=== PATIENT | female | born 1955 | race Caucasian/White ===

== ENCOUNTER 2023-06-07 11:01 | Inpatient (IN) ==
--- NOTE | 2023-05-17 13:53 | PAT Medication Instructions ---
Medication Instructions Date of Service May 17, 2023 ASK your surgeon for instructions ibuprofen 400 mg tablet 400 mg PO Q6H PRN Pain DO NOT take the morning of surgery ascorbic acid (vitamin C) 1,000 mg tablet (Vitamin C) 1 g PO QAM cholecalciferol (vitamin D3) 25 mcg (1,000 unit) capsule (Vitamin D3) 25 mcg PO QAM dicyclomine 10 mg capsule 10 mg PO TID ferrous sulfate 325 mg (65 mg iron) tablet (iron) 325 mg PO UD lisinopril 20 mg-hydrochlorothiazide 12.5 mg tablet 1 tab PO QAM magnesium 1 tab PO QAM Take morning of surgery With a small sip of water, OTHERWISE NOTHING TO EAT OR DRINK AFTER MIDNIGHT: fluticasone propionate 50 mcg/actuation nasal spray,suspension 1 spray intranasal DAILY PRN Congestion (if needed) paroxetine HCl 20 mg tablet 20 mg PO QAM Take evening before surgery dicyclomine 10 mg capsule 10 mg PO TID fluticasone propionate 50 mcg/actuation nasal spray,suspension 1 spray intranasal DAILY PRN Congestion (if needed) melatonin 5 mg tablet 10 mg PO HS potassium chloride 10 mEq capsule,extended release 10 - 20 meq PO UD Other Notes If you have any questions please call us at [phone] or [phone] or [phone] or [phone]
--- NOTE | 2023-05-24 11:29 | Anesthesiology Consultation ---
Date of Service May 24, 2023 Assessment & Plan (1) Encounter for pre-operative examination: - Infectious disease screening: Per assessment on 05/24/23: No known infectious disease contacts or current infectious disease symptoms. No noted recent Covid positive test result. - Preop testing: Note written to PCP regarding anemia noted on preop labs > PCP visit/anemia response (05/26/23): "History of iron deficiency anemia. Presently is on iron. Continue to monitor CBC.. Examination is unremarkable. Chest Xray showed no acute findings. EKG sinus rhythm with no acute findings. CBC CMP unremarkable. Iron levels normal. Patient medically cleared for upcoming surgery." Chart Review Chart Review: Acceptable Risk for Surgery and Patient seen in Pre Admission Testing Teaching & Discussion Pre-Anesthesia Teaching/Discussion Notes: Instructed NPO after midnight before surgery,except medications with 15 cc of water. Medication instructions provided according to the PAT guidelines. History Surgery Operation Date: 06/07/23 07:45 Proposed Procedures p L2-L3 Decompression and Fusion, L3-S1 Hardware Removal, Spinal Cord Monitoring - Ankur Celis DO Height/Weight Height: 5 ft 2 in Weight: 90 kg Allergies Allergy/AdvReac Type Severity Reaction Status Date / Time No Known Allergies Allergy Verified 05/17/23 08:56 Medications Home Medications Medication Instructions Recorded Confirmed Last Taken ascorbic acid (vitamin C) 1,000 mg 1 g PO QAM 05/17/23 05/17/23 Unknown tablet (Vitamin C) cholecalciferol (vitamin D3) 25 25 mcg PO QAM 05/17/23 05/17/23 Unknown mcg (1,000 unit) capsule (Vitamin D3) dicyclomine 10 mg capsule 10 mg PO TID 05/17/23 05/17/23 Unknown ferrous sulfate 325 mg (65 mg 325 mg PO UD 05/17/23 05/17/23 Unknown iron) tablet (iron) fluticasone propionate 50 1 spray intranasal DAILY PRN 05/17/23 05/17/23 Unknown mcg/actuation nasal Congestion spray,suspension ibuprofen 400 mg tablet 400 mg PO Q6H PRN Pain 05/17/23 05/17/23 Unknown lisinopril 20 1 tab PO QAM 05/17/23 05/17/23 Unknown mg-hydrochlorothiazide 12.5 mg tablet magnesium 1 tab PO QAM 05/17/23 05/17/23 Unknown melatonin 5 mg tablet 10 mg PO HS 05/17/23 05/17/23 Unknown paroxetine HCl 20 mg tablet 20 mg PO QAM 05/17/23 05/17/23 Unknown potassium chloride 10 mEq 10 - 20 meq PO UD 05/17/23 05/17/23 Unknown capsule,extended release Motrin 2 tab PO Q4 PRN Pain 05/24/23 05/24/23 Unknown Past Medical History Medical History Tremors of nervous system "Head" Follows with [facility] neurology Hx of hyperglycemia PCP monitoring History of blood transfusion Back surgery approximately 2017 Anemia Taking iron supplementation Seasonal allergies Hypertension Anxiety and depression Exercise / Class Metabolic Activity II 4-5 Yardwork/Stairs/Walk up hill (one FS (no CP, no SOB)) Past Surgical History Surgical History Nausea and vomiting after administration of anesthetic agent Hx of arthroscopy of left knee Hx of elbow surgery left elbow tendon surgery Hx of section x4 Hx laparoscopic cholecystectomy Hx of colonoscopy Hx of tooth extraction full dentures History of lumbar fusion Approximately 2017 History of open reduction and internal fixation (ORIF) procedure left ankle- hardware intact Hx of foot surgery right foot fusion (top of foot) Past Anesthesia History No Hx of Anesthesia Complications and No Family Hx of Anesthesia Complications (except son- PONV) History of PONV No Hx of Motion Sickness and History of PONV (Per patient, improvement in the past when scope patch used perioperatively) Social History Smoking Status: Never smoker Do You Dip or Chew Tobacco: No Hx Alcohol Use: Yes alcohol intake frequency: holidays/special occasions only Hx Substance Use: No substance use type: does not use Review of Systems Patient denies chest pain, shortness of breath, dyspnea on exertion, fever, chills, cough, wheezing, palpitations. Physical Exam Vital Signs VITALS BP 108/72 P 62 TEMP 98.6 SP02 97%RA RESP 16 PHYSICAL Full cervical extension range of motion. Full TMJ range of motion. TMD 3 finger breaths Mallampati Score 1 Dentition: upper/lower dentures Lungs: clear throughout to auscultation Cardiac: regular rate and rhythm, no murmurs noted Spine: normal Carotid arteries: negative bruit Extremities: no LE edema Lab Results Anesthesia Preop Results Results Anesthesia Widget: WBC 4.03 K/ul (4.8-10.8) L 05/24/23 Hgb 10.7 g/dl (12.0-16.0) L 05/24/23 Hct 32.0 % (37.0-47.0) L 05/24/23 Plt 206 K/uL (130-400) 05/24/23 Na 138 mmol/L (136-145) 05/24/23 K 3.9 mmol/L (3.5-5.1) 05/24/23 Cl 105 mmol/L (98-107) 05/24/23 CO2 26 mmol/L (21-32) 05/24/23 BUN 15 mg/dl (6-23) 05/24/23 Creat 0.74 mg/dl (0.6-1.2) 05/24/23 Glucose Level 103 mg/dl (70-99(Fasting)) H 05/24/23 PT 10.6 Seconds (9.0-12.0) 05/24/23 PTT 26 Seconds (21-31) 05/24/23 INR 1.0 (0.9-1.1) 05/24/23 Urine Color Dark Yellow 05/24/23 Urine Appearance Cloudy (Clear) A 05/24/23 Urine pH 5.5 (4.5-7.5) 05/24/23 Urine Specific [place] 1.031 (1.000-1.030) H 05/24/23 Urine Protein 1+ (Negative) H 05/24/23 Urine Glucose (UA) Negative (Negative) 05/24/23 Urine Ketones Trace (Negative) H 05/24/23 Urine Blood Negative (Negative) 05/24/23 Urine Nitrite Negative (Negative) 05/24/23 Urine Bilirubin 1+ (Negative) H 05/24/23 Urine Urobilinogen Negative (Negative) 05/24/23 Urine Leukocyte Esterase 1+ (Negative) H 05/24/23 Urine WBC (Auto) >30 /hpf (0-5) H 05/24/23 Urine RBC (Auto) 0-4 /hpf (0-4) 05/24/23 Urine Hyaline Casts (Auto) 1-5 /lpf (0-5) 05/24/23 Urine Epithelial Cells (Auto) >30 /lpf (0-5) H 05/24/23 Urine Bacteria (Auto) 1+ (Negative) H 05/24/23 Blood Type B Positive 05/24/23 Antibody Screen NEGATIVE 05/24/23 Testing Laboratory Results Surgeon's office made aware of abnormal UA* Preop labs including low WBC/anemia sent to PCP* Electrocardiogram Date: 05/24/23 SB with sinus arrythmia at 58bpm. NS ST/TWA. Chest X-Ray Date: 05/24/23 FINDINGS: Lung volumes are normal. Lungs are clear. There is no pneumothorax or pleural effusion. Cardiac size is normal. Mediastinal contours are normal. There is no evidence for pulmonary edema. Cholecystectomy clips are incidentally noted. IMPRESSION: No acute cardiopulmonary findings. Stress Test Date: 04/24/19 Type: nuclear Pharmacologic stress EKG is negative for ischemia. Normal hemodynamic response to vasodilator stress. Stress ECG is nondiagnostic due to being pharmacologic type stress. SPECT perfusion imaging demonstrated no evidence of ischemia or infarct. LVEF 65%.
[~2023-06-07 11:01] MED LIST: ACETAMINOPHEN 500 MG TAB PO SCH; CeleBREX 200 MG CAP PO SCH; DEXAMETHASONE SOD INJ 4 MG/ML VIAL ONE; GABAPENTIN 300 MG CAP PO SCH; LIDOCAINE 2% 2 ML VIAL/AMP(20MG/ML) INFIL ONE; LR 15ML/HR IV SCH; LR 60ML/HR IV SCH; MIDAZOLAM HCL 1 MG/ML 2ML VIAL ONE; ONDANSETRON INJ 2 MG/ML 2 ML VIAL ONE; PROPOFOL IV EMULSION 10 MG/ML 20 ML VIAL IV ONE; ROCURONIUM BROMIDE 10 MG/ML 5 ML VIAL IV ONE; SUGAMMADEX SODIUM 200 MG/2 ML VIAL IV ONE; ceFAZolin 2000MG 2,000 MG/15 ML SYR IV SCH; fentaNYL citrate PF 100 MCG/2 ML VIAL ONE
[2023-06-07] MEDS ORDERED: SCOPOLAMINE 1 MG TDSY TD ONE (11:52)
[2023-06-07] MEDS ORDERED: LABETALOL HCL IV 5 MG/ML 20ML IV PRN (11:58)
[2023-06-07] MEDS ORDERED: ONDANSETRON INJ 2 MG/ML 2 ML VIAL IV PRN ×2 (11:58→18:39)
[2023-06-07] MEDS ORDERED: ATROPINE SULFATE 0.1 MG/ML 10ML SYR IV PRN (11:58)
[2023-06-07] MEDS ORDERED: NALOXONE HCL 0.4 MG/1 ML VIAL/CARP IV PRN ×2 (11:58→18:39)
[2023-06-07] MEDS ORDERED: FLUMAZENIL 0.1 MG/1 ML 10 ML VIAL IV PRN (11:58)
[2023-06-07] MEDS ORDERED: PROMETHAZINE HCL 12.5 MG in SODIUM CHLORIDE 0.9% 50 ML IV PRN ×2 (11:58→18:39)
[2023-06-07] MEDS ORDERED: ePHEDrine sulfate 50 MG/ML AMP IV PRN (11:58)
[2023-06-07] MEDS ORDERED: SCOPOLAMINE 1 MG TDSY TD SCH (12:15)
--- NOTE | 2023-06-07 13:41 | History & Physical Bridge Note ---
Date of Service June 07, 2023 History & Physical Bridge Note I have examined the patient, reviewed the History & Physical and in the interval since the performance of the History & Physical I have noted the following changes of clinical significance: no changes noted
--- NOTE | 2023-06-07 13:42 | History & Physical Report ---
Date of Service June 07, 2023 Assessment & Plan (1) Neurogenic claudication due to lumbar spinal stenosis: Plan: L2-L3 decompression and fusion L3-S1 hardware removal History of Present Illness Chief Complaint: Back and leg pain Primary Care Provider: Thomas Chin, PhD, DO This is a 68-year-old female who presents with chronic persistent back and leg pain after failing course of nonoperative care is here for surgical intervention. Allergies Allergy/AdvReac Type Severity Reaction Status Date / Time No Known Allergies Allergy Verified 06/07/23 11:34 Home Medications Medication Instructions Recorded Confirmed Type ascorbic acid (vitamin C) 1,000 mg 1 g PO QAM 05/17/23 06/07/23 History tablet (Vitamin C) cholecalciferol (vitamin D3) 25 25 mcg PO QAM 05/17/23 06/07/23 History mcg (1,000 unit) capsule (Vitamin D3) dicyclomine 10 mg capsule 10 mg PO TID 05/17/23 06/07/23 History ferrous sulfate 325 mg (65 mg 325 mg PO UD 05/17/23 06/07/23 History iron) tablet (iron) fluticasone propionate 50 1 spray intranasal DAILY PRN 05/17/23 06/07/23 History mcg/actuation nasal Congestion spray,suspension ibuprofen 400 mg tablet 400 mg PO Q6H PRN Pain 05/17/23 06/07/23 History lisinopril 20 1 tab PO QAM 05/17/23 06/07/23 History mg-hydrochlorothiazide 12.5 mg tablet magnesium 1 tab PO QAM 05/17/23 06/07/23 History melatonin 5 mg tablet 10 mg PO HS 05/17/23 06/07/23 History paroxetine HCl 20 mg tablet 20 mg PO QAM 05/17/23 06/07/23 History potassium chloride 10 mEq 10 - 20 meq PO UD 05/17/23 06/07/23 History capsule,extended release Motrin 2 tab PO Q4 PRN Pain 05/24/23 06/07/23 History Past Med/Surg History Medical History Tremors of nervous system "Head" Follows with [facility] neurology Hx of hyperglycemia PCP monitoring History of blood transfusion Back surgery approximately 2017 Anemia Taking iron supplementation Seasonal allergies Hypertension Anxiety and depression Surgical History Nausea and vomiting after administration of anesthetic agent Hx of arthroscopy of left knee Hx of elbow surgery left elbow tendon surgery Hx of section x4 Hx laparoscopic cholecystectomy Hx of colonoscopy Hx of tooth extraction full dentures History of lumbar fusion Approximately 2017 History of open reduction and internal fixation (ORIF) procedure left ankle- hardware intact Hx of foot surgery right foot fusion (top of foot) Social History Smoking Status: Never smoker Second Hand Exposure: Yes (hx as child); Do You Dip or Chew Tobacco: No; Tobacco Cessation Education Requested by Patient: No Hx Alcohol Use: Yes Hx Substance Use: No Preferred Language: Chinese Communication Ability: Effective Workers Compensation Defense Attorney Required: No Beliefs That Will Affect Care: None Current Living Situation: Spouse Other Information That Helps Us Care for You: No Feels Safe at Home: Yes Safety Concerns: Feels Safe At This Time Assistive Devices: Denture - Upper, Denture - Lower and Hearing Aid - Bilateral Physical Exam Physical Exam: Patient is alert and oriented Heart regular Lungs clear Results & Data Results & Data Vital Signs (Past 12 Hours) Vital Signs Temp Pulse Resp BP Pulse Ox O2 Del Method 06/07/23 11:20 36.7 C 85 18 149/75 H 95 Room Air
[2023-06-07] MEDS ORDERED: BUPIVACAINE/EPINEPHRINE 0.25% 1:200,000 30 ML VIAL ONE (14:02)
[2023-06-07] MEDS ORDERED: ceFAZolin 330 MG/ML 1 GM VIAL ONE (14:02)
[2023-06-07] MEDS ORDERED: FLOSEAL HEMOSTATIC MATRIX 10ML TOP ONE (14:38)
[2023-06-07] MEDS ORDERED: fentaNYL citrate PF 100 MCG/2 ML VIAL ONE (15:07)
[2023-06-07] MEDS ORDERED: ROCURONIUM BROMIDE 10 MG/ML 5 ML VIAL IV ONE (15:17)
[2023-06-07] MEDS ORDERED: SUGAMMADEX SODIUM 200 MG/2 ML VIAL IV ONE (15:59)
--- NOTE | 2023-06-07 16:02 | Operative Report ---
Post Operative Report Pre & Post Diagnosis Operation Date: 06/07/23 12:45 Pre-Op Diagnosis: Neurogenic claudication due to lumbar spinal stenosis Post-Op Diagnosis: Neurogenic claudication due to lumbar spinal stenosis I identified the patient and participated in the time-out.: Yes Procedure Operation Date: 06/07/23 12:45 Actual Procedures #1 lumbar decompression bilaterally facetectomies and foraminotomies L1-L2 L2- L3. #2 posterior spinal fusion L2-L3. #3 placement posterior instrumentation L2-L3 with connectors at L3-L4. #4 interbody fusion L2-L3. #5 placement Spira 11 x 26 mm at L2-3. #6 placement locally harvested morselized autograft in the posterior gutters. #7 placement of Morpheus bone graft in the interbody space and infuse collagen sponge combined with master graft in the posterior lateral gutters. Surgeon Ankur Celis, DO Ethnoarchaeologist Nora Aguilar Estimated Blood Loss 200 Findings See Below The patient is 5 foot 2 weighing over 89 kg with a BMI of 36. Patient's body was did contribute to significant technical difficulty with difficulty with positioning exposure and the procedure itself. This had at least 50% increased operative time. Specimens None Indications This is a 68-year-old female who presents with above-mentioned diagnosis after failed course of nonoperative care is here for surgical invention. Description of Procedure Patient met with identified informed consent obtained. Patient was then taken to the operative suite and after undergoing intubation placed in a prone position on the John table on top of the Ryley frame. All bony prominences well-padded eyes inspected to ensure no external pressure placed upon the. This point lumbar spine was prepped and draped in a sterile fashion. Sharp dissection with the assistance of Bovie cautery from down to and exposing the lamina transverse processes of L2 and the previous shubham between L3 and L4. Then performed a complete laminectomy L2 partial laminectomy of L1 including bilaterally facetectomies and foraminotomies addressing severe spinal stenosis. Pedicle screws then placed in L2 connectors attached to the shubham between L3 and L4. By way of transforaminal approach on the left complete discectomy of L2-L3 was performed endplates guided to subcortical bleeding bone and 11 x 26 mm Spira cage with Morpheus tapped in position. Proper sized shubham was then placed and locked into position bilaterally. The transverse processes of L2-L3 burred to subcortically and bone. Infuse collagen sponge, mass graft and local autograft placed in the posterior gutters. 15 round ALNI inserted. The incision was then closed with 1 Vicryl the fascia 2-0 Vicryl subcutaneously and 4 Monocryl for final skin closure. Steri-Strips sterile dressing placed. Patient awakened taken to PACU in stable condition. Please note spinal cord monitoring was utilized at the procedure no changes noted. Lastly Nora Aguilar was present at the entire procedure and all the patient positioning complex portions of the surgery and final skin closure. I attest to the content of the Intraoperative Record and any orders documented therein. Any exceptions are noted below.
--- NOTE | 2023-06-07 16:25 | Fluoroscopy Report ---
FL lumbar spine 2-3V CLINICAL HISTORY: L2-L3 DECOMP/FUSION, L3-S1 HARDWARE REMOVAL COMPARISON STUDY: None FLUOROSCOPY TIME: 12.4 seconds FLUOROSCOPY IMAGES: 3 EXPOSURE DOSE: 10.89 mGy FINDINGS: Posterior interbody shubham and screw fusion hardware with discectomy changes. Exact numbering is difficult secondary to magnification. Note that the images were submitted following completion of the surgery. The hardware appears intact. No unexpected opaque foreign body identified. IMPRESSION: Fluoroscopic assistance as above. ACT 112: Negative or not required by law. Electronically signed by: Kemal Calderon M.D. 06/07/2023 4:24 PM
[2023-06-07] MEDS: fentaNYL citrate PF 100 MCG/2 ML VIAL IV PRN ×4 (16:40→16:55)
[2023-06-07] MEDS: HYDROmorphone INJ 1 MG/ML SYRINGE IV PRN ×8 (17:00→17:55)
--- NOTE | 2023-06-07 18:03 | Anesthesiology Progress Note ---
Date of Service June 07, 2023 Anesthesia Post Procedure Vital Signs Vital Signs: Temp Pulse Pulse Resp BP Pulse Ox O2 Del Method 06/07/23 17:55 79 17 126/67 95 Nasal Cannula 06/07/23 17:45 72 13 124/55 L 95 Nasal Cannula 06/07/23 17:35 36.8 C 76 12 126/55 L 95 Nasal Cannula 06/07/23 17:25 79 12 123/67 92 Oxymask 06/07/23 17:15 76 12 116/66 95 Oxymask 06/07/23 17:05 74 12 124/59 L 99 Oxymask 06/07/23 16:55 73 10 L 121/63 99 Oxymask 06/07/23 16:45 82 13 134/55 L 99 Oxymask 06/07/23 16:35 85 15 133/63 99 Oxymask 06/07/23 16:25 88 15 118/57 L 99 Oxymask 06/07/23 16:18 36.9 C 93 H 16 139/63 98 Oxymask 06/07/23 11:20 36.7 C 85 18 149/75 H 95 Room Air O2 Flow Rate 06/07/23 17:55 2 06/07/23 17:45 2 06/07/23 17:35 2 06/07/23 17:25 4 06/07/23 17:15 4 06/07/23 17:05 4 06/07/23 16:55 4 06/07/23 16:45 6 06/07/23 16:35 6 06/07/23 16:25 8 06/07/23 16:18 8 06/07/23 11:20 Pain Intensity Bilateral Back: Pain Intensity: 6 Transfer of Care Handoff Completed per policy Notes Mental Status: alert / awake / arousable Patient Amnestic to Procedure: Yes Nausea / Vomiting: adequately controlled Pain: adequately controlled Airway Patency, RR, SpO2: stable & adequate BP & HR: stable & adequate Hydration State: stable & adequate Anesthetic Complications: no major complications apparent and Pt Satisfied with anesthetic care
[2023-06-07] MEDS ORDERED: bisacodyL 10 MG SUPP PR PRN (18:39)
[2023-06-07] MEDS ORDERED: ACETAMINOPHEN 500 MG TAB PO PRN (18:39)
[2023-06-07] MEDS ORDERED: HYDROmorphone INJ 1 MG/ML SYRINGE IV PRN (18:39)
[2023-06-07] MEDS ORDERED: POTASSIUM CHLORIDE 10 MEQ TABCR PO SCH (18:39)
[2023-06-07] MEDS ORDERED: DO NOT ADMINISTER FLU VACCINE PRN (18:39)
[2023-06-07] MEDS ORDERED: DO NOT ADMINISTER PNEUMOCOCCAL VACCINE PRN (18:39)
[2023-06-07] MEDS ORDERED: SOD PHOSPHATE/SOD BIPHOSPHATE ENEMA 132 ML BTL PR PRN (18:39)
[2023-06-07] MEDS ORDERED: hydrOXYzine HCl 25 MG TAB PO PRN (18:39)
[2023-06-07] MEDS ORDERED: LORazepam 0.5 MG TAB PO PRN (18:39)
[2023-06-07] MEDS ORDERED: ONDANSETRON 4 MG OD TAB PO PRN (18:39)
[2023-06-07] MEDS ORDERED: diphenhydrAMINE Capsule 25 MG CAP PO PRN (18:39)
[2023-06-07] MEDS ORDERED: FAMOTIDINE 20 MG TAB PO PRN (18:39)
[2023-06-07] MEDS ORDERED: ALUMINUM/MAGNESIUM SUSP 30 ML UDC PO PRN (18:39)
[2023-06-07] MEDS ORDERED: MAGNESIUM HYDROXIDE SUSP 30 ML UDC PO PRN (18:39)
[2023-06-07] MEDS ORDERED: ACETAMINOPHEN 1,000 MG/100 ML VIAL IV PRN (18:39)
[2023-06-07] MEDS ORDERED: METOCLOPRAMIDE HCL INJ 5 MG/ML 2 ML VIAL IV PRN (18:39)
[2023-06-07] MEDS ORDERED: LORazepam 0.5 MG in SYRINGE 0.25 ML IV PRN (18:39)
[2023-06-07] MEDS ORDERED: HYDROmorphone INJ 0.5 MG/0.5 ML SYR IV PRN (18:39)
[2023-06-07] MEDS: LACTATED RINGER'S 1,000 ML IV SCH (19:59)
[2023-06-07] MEDS: CHECK SCOPOLAMINE PATCH PLACEMENT SCH (19:59)
[2023-06-07] MEDS: DICYCLOMINE HCL 10 MG CAP PO SCH (21:13)
[2023-06-07] MEDS: DOCUSATE SODIUM/SENNA 50/8.6MG TAB PO SCH (21:13)
[2023-06-07] MEDS: MELATONIN 3 MG TAB PO SCH (21:13)
[2023-06-07] MEDS: POTASSIUM CHLORIDE CRTAB 20 MEQ TABCR PO SCH (21:14)
[2023-06-07] MEDS: traMADol HCL 50 MG TABLET PO PRN (21:17)
[2023-06-07] MEDS: ceFAZolin 2000MG 2,000 MG/15 ML SYR IV SCH (21:56)
[2023-06-08] MEDS: CHECK SCOPOLAMINE PATCH PLACEMENT SCH ×4 (01:06→23:01)
[2023-06-08] MEDS: oxyCODONE HCL IR 5 MG TAB (IMMEDIATE RELEASE) PO PRN ×4 (02:30→19:39)
--- NOTE | 2023-06-08 04:42 | Consultation ---
Date of Consultation June 08, 2023 Assessment & Plan (1) Neurogenic claudication due to lumbar spinal stenosis: 68-year-old female with past medical history significant for hypertension, hyperlipidemia, depression, iron deficiency anemia, irritable bowel syndrome s/p back surgery. Neurogenic claudication due to lumbar spinal stenosis S/p back surgery Management as per orthopedics History of hypertension On lisinopril/ hydrochlorothiazide Will monitor History of depression On paroxetine DVT prophylaxis As per Ortho Disposition As per Ortho History of Present Illness Reason for Consultation: Status post back surgery. Medical management Attending Physician: Ankur Celis DO History of Present Illness 68-year-old female with past medical history significant for hypertension, hyperlipidemia, depression, iron deficiency anemia, irritable bowel syndrome s/p back surgery. Tolerated procedure fine. Complains of some pain at surgical site. And some tightness in the legs. Can move her feet. Resting comfortably. Denies any headache. No blurred visions. No cough. No sore throat. No nausea. No chest pain or shortness of breath. No abdominal pain. Past medical history. As mentioned above Past surgical history. , cholecystectomy, appendectomy, surgical repair of [place]'s cyst, ankle surgery. Social history. No smoking. Alcohol occasional. Family history. Father had hypertension. Allergies Allergy/AdvReac Type Severity Reaction Status Date / Time No Known Allergies Allergy Verified 06/07/23 11:34 Home Medications Medication Instructions Recorded Confirmed Type ascorbic acid (vitamin C) 1,000 mg 1 g PO QAM 05/17/23 06/07/23 History tablet (Vitamin C) cholecalciferol (vitamin D3) 25 25 mcg PO QAM 05/17/23 06/07/23 History mcg (1,000 unit) capsule (Vitamin D3) dicyclomine 10 mg capsule 10 mg PO TID 05/17/23 06/07/23 History ferrous sulfate 325 mg (65 mg 325 mg PO UD 05/17/23 06/07/23 History iron) tablet (iron) fluticasone propionate 50 1 spray intranasal DAILY PRN 05/17/23 06/07/23 History mcg/actuation nasal Congestion spray,suspension ibuprofen 400 mg tablet 400 mg PO Q6H PRN Pain 05/17/23 06/07/23 History lisinopril 20 1 tab PO QAM 05/17/23 06/07/23 History mg-hydrochlorothiazide 12.5 mg tablet magnesium 1 tab PO QAM 05/17/23 06/07/23 History melatonin 5 mg tablet 10 mg PO HS 05/17/23 06/07/23 History paroxetine HCl 20 mg tablet 20 mg PO QAM 05/17/23 06/07/23 History potassium chloride 10 mEq 10 - 20 meq PO UD 05/17/23 06/07/23 History capsule,extended release Motrin 2 tab PO Q4 PRN Pain 05/24/23 06/07/23 History oxycodone 5 mg tablet 5 mg PO Q6H PRN pain #30 tabs 06/08/23 Rx tramadol 50 mg tablet 50 mg PO Q6H PRN pain, moderate 06/08/23 Rx #30 tabs Patient History Medical History Tremors of nervous system "Head" Follows with [facility] neurology Hx of hyperglycemia PCP monitoring History of blood transfusion Back surgery approximately 2016 Anemia Taking iron supplementation Seasonal allergies Hypertension Anxiety and depression Surgical History Nausea and vomiting after administration of anesthetic agent Hx of arthroscopy of left knee Hx of elbow surgery left elbow tendon surgery Hx of section x4 Hx laparoscopic cholecystectomy Hx of colonoscopy Hx of tooth extraction full dentures History of lumbar fusion Approximately 2017 History of open reduction and internal fixation (ORIF) procedure left ankle- hardware intact Hx of foot surgery right foot fusion (top of foot) Social History Smoking Status: Never smoker Second Hand Exposure: Yes (hx as child); Do You Dip or Chew Tobacco: No; Tobacco Cessation Education Requested by Patient: No Hx Alcohol Use: Yes Hx Substance Use: No Preferred Language: Faroese Communication Ability: Effective Commercial Airplane Pilot Required: No Beliefs That Will Affect Care: None Current Living Situation: Spouse Other Information That Helps Us Care for You: No Feels Safe at Home: Yes Safety Concerns: Feels Safe At This Time Assistive Devices: Denture - Upper, Denture - Lower and Hearing Aid - Bilateral Review of Systems Review of Systems: All systems reviewed & are unremarkable except as noted in HPI & below Physical Exam Physical Exam: General- Not in distress. Head- atraumatic Eyes-, EOMI. ENT- oropharynx clear Neck- supple, no JVD; carotids +2/2, no bruits appreciated Lungs- clear to auscultation no wheezing or crackles. Heart- regular rhythm; no murmur, no gallop. Abdomen- normal bowel sounds, soft, nontender, no distension. Extremities- no pretibial edema,. Neuro- alert, oriented x 3; EOMI; no facial palsy; no dysarthria; moves extremities. Musculoskeletal s/p back surgery. Dressing and drain intact. Skin- warm & dry Results & Data Vital Signs (Past 12 Hours) Vital Signs Temp Pulse Pulse Resp BP Pulse Ox O2 Del Method 06/08/23 02:28 36.4 C L 72 15 132/70 96 Nasal Cannula 06/07/23 23:10 36.5 C 69 16 108/66 95 Nasal Cannula 06/07/23 22:24 Nasal Cannula 06/07/23 21:50 36.5 C 78 16 102/69 97 Nasal Cannula 06/07/23 20:50 36.7 C 74 16 119/71 97 Nasal Cannula 06/07/23 20:20 36.7 C 70 16 119/70 96 Nasal Cannula 06/07/23 19:50 36.8 C 74 16 109/63 94 Nasal Cannula 06/07/23 19:15 79 12 143/68 H 96 Nasal Cannula 06/07/23 18:45 77 14 133/62 95 Nasal Cannula 06/07/23 18:30 76 15 104/68 96 Nasal Cannula 06/07/23 18:15 79 12 137/56 L 94 Nasal Cannula 06/07/23 18:00 37 C 76 12 131/59 L 94 Nasal Cannula 06/07/23 17:55 79 17 126/67 95 Nasal Cannula 06/07/23 17:45 72 13 124/55 L 95 Nasal Cannula 06/07/23 17:35 36.8 C 76 12 126/55 L 95 Nasal Cannula 06/07/23 17:25 79 12 123/67 92 Oxymask 06/07/23 17:15 76 12 116/66 95 Oxymask 06/07/23 17:05 74 12 124/59 L 99 Oxymask 06/07/23 16:55 73 10 L 121/63 99 Oxymask 06/07/23 16:45 82 13 134/55 L 99 Oxymask O2 Flow Rate 06/08/23 02:28 2 06/07/23 23:10 2.0 06/07/23 22:24 2 06/07/23 21:50 2 06/07/23 20:50 2 06/07/23 20:20 2.0 06/07/23 19:50 2 06/07/23 19:15 2 06/07/23 18:45 2 06/07/23 18:30 2 06/07/23 18:15 2 06/07/23 18:00 2 06/07/23 17:55 2 06/07/23 17:45 2 06/07/23 17:35 2 06/07/23 17:25 4 06/07/23 17:15 4 06/07/23 17:05 4 06/07/23 16:55 4 06/07/23 16:45 6 Diagnostic Findings Laboratory Results Blood Type B Positive 06/07/23 11:16 Antibody Screen NEGATIVE 06/07/23 11:16 Impressions Lumbar Spine X-Ray 06/07/23 00:00 [place] lumbar spine 2-3V CLINICAL HISTORY: L2-L3 DECOMP/FUSION, L3-S1 HARDWARE REMOVAL COMPARISON STUDY: None FLUOROSCOPY TIME: 12.4 seconds FLUOROSCOPY IMAGES: 3 EXPOSURE DOSE: 10.89 mGy FINDINGS: Posterior interbody shubham and screw fusion hardware with discectomy changes. Exact numbering is difficult secondary to magnification. Note that the images were submitted following completion of the surgery. The hardware appears intact. No unexpected opaque foreign body identified. IMPRESSION: Fluoroscopic assistance as above. ACT 112: Negative or not required by law. Electronically signed by: Keaml Calderon M.D. 06/07/2023 4:24 PM
[2023-06-08] MEDS: ceFAZolin 2000MG 2,000 MG/15 ML SYR IV SCH (05:21)
[2023-06-08] MEDS: LACTATED RINGER'S 1,000 ML IV SCH (05:21)
[2023-06-08] MEDS: POLYETHYLENE (MIRALAX) 17 GM PACK PO SCH ×4 (05:41→23:01)
[2023-06-08] MEDS: dexAMETHasone 6 MG in SYRINGE 0 ML IV SCH (07:46)
[2023-06-08] MEDS: DICYCLOMINE HCL 10 MG CAP PO SCH ×3 (07:46→20:07)
[2023-06-08] MEDS: FERROUS SULFATE 325 MG TAB PO SCH (07:47)
[2023-06-08] MEDS: MAGNESIUM OXIDE 400 MG TAB PO SCH (07:47)
[2023-06-08] MEDS: POTASSIUM CHLORIDE 10 MEQ TABCR PO SCH (07:47)
[2023-06-08] MEDS: PARoxetine HCL 20 MG TAB PO SCH (07:47)
[2023-06-08 08:32] LABS: Basophils # (auto) 0.01 K/uL (0.00-0.20); Basophils % (auto) 0.1 %; Hematocrit (blood only) 33.6 % (37.0-47.0); Hemoglobin 10.5 g/dl (12.0-16.0); Immature Granulocytes # (auto) 0.03 K/uL (0.01-0.20); Immature Granulocytes % (auto) 0.3 %; Lymphocytes # (auto) 0.89 K/uL (1.20-3.40); Lymphocytes % (auto) 8.9 %; Mean Corpuscular Hemoglobin 27.6 pg (25.0-34.0); Mean Corpuscular Hgb Conc 31.3 g/dL (32.0-36.0); Mean Corpuscular Volume 88.2 fL (80.0-100.0); Mean Platelet Volume 9.7 fL (9.4-12.4); Monocytes # (auto) 0.53 K/uL (0.11-0.59); Monocytes % (auto) 5.3 %; Neutrophils # (auto) 8.49 K/uL (1.40-6.50); Neutrophils % (auto) 85.4 %; Platelet Count 233 K/uL (130-400); RDW Standard Deviation 41.8 fL (36.4-46.3); Red Blood Count 3.81 M/uL (4.20-5.40); White Blood Count 9.95 K/ul (4.8-10.8)
[2023-06-08 08:47] LABS: Magnesium 1.9 mg/dl (1.7-2.4)
[2023-06-08 08:48] LABS: BUN Creatinine Ratio 27.3 (10-20); Calcium 8.2 mg/dl (8.6-10.3); Creatinine Clr Calc Pharmacy 74.7 ml/min; Est GFR (African American) 93.3 ml/min; Est GFR (Non-African American) 80.5 ml/min; Potassium 4.7 mmol/L (3.5-5.1)
[2023-06-08] MEDS ORDERED: NON-FORMULARY MEDICATION (Ferrous Sulfate [Iron] 325 mg (65 mg iron) Tablet) PO SCH (09:00)
[2023-06-08] MEDS ORDERED: LISINOPRIL/HCTZ 20/12.5MG 1 TAB TAB PO SCH (09:00)
--- NOTE | 2023-06-08 11:49 | Orthopedic Progress Note ---
Date of Service June 08, 2023 Assessment & Plan (1) Neurogenic claudication due to lumbar spinal stenosis: Plan: At this time we will continue physical therapy monitor ALIN operatively discharge home in the next few days. Admission and Anticipated Discharge Date Admission Date: June 07, 2023 Subjective Back pain controlled leg pain improved Physical Exam Physical Exam: Patient seen at bedside. Skin strength testing appears comfortable. Results & Data Vital Signs (Past 12 Hours) Vital Signs Temp Pulse Resp BP Pulse Ox O2 Del Method O2 Flow Rate 06/08/23 07:45 Room Air 06/08/23 07:39 36.5 C 66 16 125/74 96 Room Air 06/08/23 02:28 36.4 C L 72 15 132/70 96 Nasal Cannula 2 Queries Orthopedic Spine Obesity: Yes
[2023-06-08] MEDS: traMADol HCL 50 MG TABLET PO PRN ×2 (15:39→23:01)
[2023-06-08] MEDS: POTASSIUM CHLORIDE CRTAB 20 MEQ TABCR PO SCH (20:10)
[2023-06-08] MEDS: DOCUSATE SODIUM/SENNA 50/8.6MG TAB PO SCH (20:10)
[2023-06-08] MEDS: MELATONIN 3 MG TAB PO SCH (20:10)
[2023-06-09] MEDS: POLYETHYLENE (MIRALAX) 17 GM PACK PO SCH ×4 (05:20→23:17)
[2023-06-09] MEDS: oxyCODONE HCL IR 5 MG TAB (IMMEDIATE RELEASE) PO PRN ×3 (05:20→20:17)
[2023-06-09 06:17] LABS: Hematocrit (blood only) 31.4 % (37.0-47.0); Hemoglobin 9.8 g/dl (12.0-16.0); Mean Corpuscular Hemoglobin 27.6 pg (25.0-34.0); Mean Corpuscular Hgb Conc 31.2 g/dL (32.0-36.0); Mean Corpuscular Volume 88.5 fL (80.0-100.0); Mean Platelet Volume 9.7 fL (9.4-12.4); Platelet Count 219 K/uL (130-400); RDW Standard Deviation 42.1 fL (36.4-46.3); Red Blood Count 3.55 M/uL (4.20-5.40); White Blood Count 9.57 K/ul (4.8-10.8)
[2023-06-09 06:35] LABS: BUN Creatinine Ratio 36.6 (10-20); Calcium 8.4 mg/dl (8.6-10.3); Est GFR (African American) 102.9 ml/min; Est GFR (Non-African American) 88.8 ml/min; Potassium 4.1 mmol/L (3.5-5.1)
[2023-06-09] MEDS: dexAMETHasone 6 MG in SYRINGE 0 ML IV SCH (07:40)
[2023-06-09] MEDS: CHECK SCOPOLAMINE PATCH PLACEMENT SCH ×3 (07:40→23:17)
[2023-06-09] MEDS: DICYCLOMINE HCL 10 MG CAP PO SCH ×3 (07:41→20:18)
[2023-06-09] MEDS: PARoxetine HCL 20 MG TAB PO SCH (07:41)
[2023-06-09] MEDS: MAGNESIUM OXIDE 400 MG TAB PO SCH (07:41)
--- NOTE | 2023-06-09 09:13 | Hospitalist Progress Note ---
Date of Service June 09, 2023 Assessment & Plan (1) Neurogenic claudication due to lumbar spinal stenosis: Plan: 68-year-old female with past medical history significant for hypertension, hyperlipidemia, depression, iron deficiency anemia, irritable bowel syndrome s/p back surgery. Neurogenic claudication due to lumbar spinal stenosis S/p back surgery Management, PT/OT, DVT ppx as per orthopedics Hypertension On lisinopril/ hydrochlorothiazide - on hold now monitor BP Iron deficiency anemia Pre-op Hgb 10.7, post op 10.5, then down today to 9.8 Expected small decrease in Hgb post-op from blood loss and dilution (acute on chronic anemia, acute blood loss anemia) No need for blood transfusion at this time cont. iron supplement History of depression On paroxetine DVT prophylaxis As per Ortho Disposition As per Ortho Admission and Anticipated Discharge Date Admission Date: June 07, 2023 Subjective Pt seen in follow up of med. consult for pt s/p spinal surgery Currently sitting up in chair, in NAD. Working w/ PT, pt's also at the bedside. No fever, chills, chest pain, shortness of breath, abd. pain, n/v Review of Systems Review of Systems: All systems reviewed & are unremarkable except as noted in Subjective Physical Exam Physical Exam: General- WD/WN F in NAD Head- atraumatic Eyes- EOMI. ENT- oropharynx clear Neck- supple, no JVD Lungs- clear to auscultation no wheezing or crackles. Heart- regular rhythm; no murmur Abdomen- normal bowel sounds, soft, nontender, no distension. Extremities- no pretibial edema,moves extremities Neuro- alert, oriented x 3; EOMI; no facial palsy; no dysarthria; moves extremities. Musculoskeletal s/p back surgery. Dressing and drain intact. Skin- warm & dry Results & Data Results & Data Vital Signs (Past 12 Hours) Vital Signs Temp Pulse Resp BP Pulse Ox O2 Del Method 06/09/23 07:28 36.5 C 69 18 112/71 95 Room Air Laboratory Results 06/09/23 Range/Units 05:48 WBC 9.57 (4.8-10.8) K/ul RBC 3.55 L (4.20-5.40) M/uL Hgb 9.8 L (12.0-16.0) g/dl Hct 31.4 L (37.0-47.0) % MCV 88.5 (80.0-100.0) fL MCH 27.6 (25.0-34.0) pg MCHC 31.2 L (32.0-36.0) g/dL RDW Std Deviation 42.1 (36.4-46.3) fL RDW Coeff of Yoandy 13.0 (11.5-14.5) % Plt Count 219 (130-400) K/uL MPV 9.7 (9.4-12.4) fL Sodium 136 (136-145) mmol/L Potassium 4.1 (3.5-5.1) mmol/L Chloride 102 (98-107) mmol/L Carbon Dioxide 29 (21-32) mmol/L Anion Gap 5 (3-11) BUN 26 H (6-23) mg/dl Creatinine 0.71 (0.6-1.2) mg/dl Est Cr Clr Drug Dosing 81.0 ml/min Est GFR ( Amer) 102.9 ml/min Est GFR (Non-Af Amer) 88.8 ml/min BUN/Creatinine Ratio 36.6 H (10-20) Glucose 131 H (70-99(Fasting)) mg/dl Calcium 8.4 L (8.6-10.3) mg/dl Medications Administered Current Inpatient Medications Acetaminophen (Acetaminophen 500 Mg Tab) 1,000 mg PO Q8H PRN PRN Reason: MILD Pain Scale 1,2,3 & Pre PT Stop: 07/07/23 18:38 Al Hydrox/Mg Hydrox/Simethicone (Aluminum/Magnesium Susp 30 Ml Udc) 30 ml PO Q6H PRN PRN Reason: Dyspepsia Stop: 07/07/23 18:38 Bisacodyl (Bisacodyl 10 Mg Supp) 10 mg MI DAILY PRN PRN Reason: Constipation Stop: 07/07/23 18:38 Dicyclomine HCl (Dicyclomine Hcl 10 Mg Cap) 10 mg PO TID EARLENE Stop: 07/07/23 20:59 Last Admin: 06/09/23 07:41 Dose: Not Given Diphenhydramine HCl (Diphenhydramine Capsule 25 Mg Cap) 25 mg PO Q6H PRN PRN Reason: Allergic Rhinitis/Insomnia Stop: 07/07/23 18:38 Famotidine (Famotidine 20 Mg Tab) 20 mg PO Q12H PRN PRN Reason: Dyspepsia Stop: 07/07/23 18:38 Ferrous Sulfate (Ferrous Sulfate 325 Mg Tab) 325 mg PO TuThSa@0900 [facility] Stop: 07/08/23 08:59 Last Admin: 06/08/23 07:47 Dose: 325 mg Lisinopril/HCTZ (Lisinopril/Hctz 20/12.5mg 1 Tab Tab) 1 tab PO QAM [facility] Stop: 07/08/23 08:59 Last Admin: 06/08/23 07:47 Dose: 1 tab Hydromorphone HCl (Hydromorphone Inj 0.5 Mg/0.5 Ml Syr) 0.5 mg IV Q3H PRN PRN Reason: MODERATE Pain (Scale 4,5,6) & Pre PT Stop: 06/21/23 18:38 Hydromorphone HCl (Hydromorphone Inj 1 Mg/Ml Syringe) 1 mg IV Q3H PRN PRN Reason: SEVERE Pain (Scale 7,8,9,10) Stop: 06/21/23 18:38 Last Admin: 06/08/23 05:27 Dose: 1 mg Hydroxyzine HCl (Hydroxyzine Hcl 25 Mg Tab) 25 mg PO Q8H PRN PRN Reason: Anxiety Stop: 07/07/23 18:38 Promethazine HCl 12.5 mg/ (Sodium Chloride) 50.5 mls @ 202 mls/hr IV Q6H PRN PRN Reason: Nausea &/or Vomiting Stop: 07/07/23 18:38 Acetaminophen (Ofirmev) 1,000 mg in 100 mls @ 400 mls/hr IV Q8H PRN PRN Reason: Pain Rating 1-3 & Pre PT Stop: 06/10/23 18:38 Lorazepam 0.5 mg/ Syringe 0.5 mls @ 2 mls/min IV Q8H PRN; Protocol PRN Reason: Sedation/Anxiety Stop: 07/07/23 18:38 Dexamethasone 6 mg/ Syringe 1.5 mls @ 1 mls/min IV DAILY [facility] Stop: 06/10/23 09:02 Last Admin: 06/09/23 07:40 Dose: 1 mls/min Influenza Virus Vaccine Quadrival (Do Not Administer Flu Vaccine) 1 each N/A PRN PRN PRN Reason: Notification Stop: 07/07/23 18:38 Lorazepam (Lorazepam 0.5 Mg Tab) 0.5 mg PO Q8H PRN PRN Reason: Sedation/Anxiety Stop: 07/07/23 18:38 Magnesium Hydroxide (Magnesium Hydroxide Susp 30 Ml Udc) 30 ml PO Q24H PRN PRN Reason: Constipation Stop: 07/07/23 18:38 Magnesium Oxide (Magnesium Oxide 400 Mg Tab) 400 mg PO QAM [facility] Stop: 07/08/23 08:59 Last Admin: 06/09/23 07:41 Dose: 400 mg Melatonin (Melatonin 3 Mg Tab) 9 mg PO HS [facility] Stop: 07/07/23 20:59 Last Admin: 06/08/23 20:10 Dose: 9 mg Metoclopramide HCl (Metoclopramide Hcl Inj 5 Mg/Ml 2 Ml Vial) 10 mg IV Q6H PRN PRN Reason: Nausea &/or Vomiting Stop: 07/07/23 18:38 Miscellaneous (Check Scopolamine Patch Placement) 1 each N/A QS [facility] Stop: 07/07/23 15:59 Last Admin: 06/09/23 07:40 Dose: 1 each Miscellaneous (Remove Transderm-Scop Patch) 1 each N/A Q72H [facility] Stop: 07/10/23 12:14 Naloxone HCl (Naloxone Hcl 0.4 Mg/1 Ml Vial/Carp) 0.1 mg IV Q5M PRN PRN Reason: Oversedation/Resp depression Stop: 07/07/23 18:38 Ondansetron HCl (Ondansetron Inj 2 Mg/Ml 2 Ml Vial) 4 mg IV Q6H PRN PRN Reason: Nausea &/or Vomiting Stop: 07/07/23 18:38 Ondansetron HCl (Ondansetron 4 Mg Od Tab) 4 mg PO Q6H PRN PRN Reason: Nausea Stop: 07/07/23 18:38 Oxycodone HCl (Oxycodone Hcl Ir 5 Mg Tab (Immediate Release)) 5 - 10 mg PO Q4H PRN PRN Reason: Pain & Pre PT Stop: 06/21/23 18:38 Last Admin: 06/09/23 05:20 Dose: 10 mg Paroxetine HCl (Paroxetine Hcl 20 Mg Tab) 20 mg PO QAM [facility] Stop: 07/08/23 08:59 Last Admin: 06/09/23 07:41 Dose: 20 mg Pneumococcal Polyvalent Vaccine (Do Not Administer Pneumococcal Vaccine) 1 each N/A PRN PRN PRN Reason: Notification Stop: 07/07/23 18:38 Polyethylene Glycol (Polyethylene (Miralax) 17 Gm Pack) 17 gm PO Q6 [facility] Stop: 07/08/23 05:59 Last Admin: 06/09/23 05:20 Dose: 17 gm Potassium Chloride (Potassium Chloride 10 Meq Tabcr) 10 meq PO QAM [facility] Stop: 07/08/23 08:59 Last Admin: 06/08/23 07:47 Dose: 10 meq Potassium Chloride (Potassium Chloride Crtab 20 Meq Tabcr) 20 meq PO [facility] Stop: 07/07/23 20:59 Last Admin: 06/08/23 20:10 Dose: 20 meq Scopolamine (Scopolamine 1 Mg Tdsy) 1 mg TD Q72H [facility] Stop: 07/07/23 12:14 Last Admin: 06/07/23 12:06 Dose: Not Given Senna/Docusate Sodium (Docusate Sodium/Senna 50/8.6mg Tab) 2 tab PO HS [facility] Stop: 07/07/23 20:59 Last Admin: 06/08/23 20:10 Dose: 2 tab Sodium Biphosphate/Sodium Phosphate (Sod Phosphate/Sod Biphosphate Enema 132 Ml Btl) 132 ml MI ONE PRN PRN Reason: Constipation Stop: 07/07/23 18:38 Tramadol HCl (Tramadol Hcl 50 Mg Tablet) 50 - 100 mg PO Q4H PRN PRN Reason: Moderate-Severe pain & Pre PT Stop: 07/07/23 18:38 Last Admin: 06/08/23 23:01 Dose: 100 mg
[2023-06-09] MEDS: POTASSIUM CHLORIDE 10 MEQ TABCR PO SCH (09:21)
--- NOTE | 2023-06-09 11:50 | Orthopedic Progress Note ---
Date of Service June 09, 2023 Assessment & Plan (1) Neurogenic claudication due to lumbar spinal stenosis: Plan: At this time continue physical therapy monitor her ALIN output anticipate discharge home tomorrow. Admission and Anticipated Discharge Date Admission Date: June 07, 2023 Subjective Patient's back pain is controlled leg pain improved. Physical Exam Physical Exam: Patient is in the chair at the bedside. She is comfortable. Discussed when to testing. Results & Data Vital Signs (Past 12 Hours) Vital Signs Temp Pulse Resp BP Pulse Ox O2 Del Method 06/09/23 07:28 36.5 C 69 18 112/71 95 Room Air Queries Orthopedic Spine Obesity: Yes
[2023-06-09] MEDS: MELATONIN 3 MG TAB PO SCH (20:18)
[2023-06-09] MEDS: DOCUSATE SODIUM/SENNA 50/8.6MG TAB PO SCH (20:18)
[2023-06-09] MEDS: POTASSIUM CHLORIDE CRTAB 20 MEQ TABCR PO SCH (20:18)
[2023-06-10] MEDS: POLYETHYLENE (MIRALAX) 17 GM PACK PO SCH (05:00)
[2023-06-10] MEDS: oxyCODONE HCL IR 5 MG TAB (IMMEDIATE RELEASE) PO PRN (05:14)
[2023-06-10 06:13] LABS: Hematocrit (blood only) 29.9 % (37.0-47.0); Hemoglobin 9.5 g/dl (12.0-16.0)
[2023-06-10] MEDS: dexAMETHasone 6 MG in SYRINGE 0 ML IV SCH (07:26)
[2023-06-10] MEDS: FERROUS SULFATE 325 MG TAB PO SCH (07:27)
[2023-06-10] MEDS: PARoxetine HCL 20 MG TAB PO SCH (07:27)
[2023-06-10] MEDS: MAGNESIUM OXIDE 400 MG TAB PO SCH (07:27)
[2023-06-10] MEDS: DICYCLOMINE HCL 10 MG CAP PO SCH (07:28)
[2023-06-10] MEDS: CHECK SCOPOLAMINE PATCH PLACEMENT SCH (07:29)
--- NOTE | 2023-06-10 08:08 | Discharge Summary ---
Date of Service June 10, 2023 Admission HPI Per Admitting Provider This is a 68-year-old female who presents with chronic persistent back and leg pain after failing course of nonoperative care is here for surgical intervention. Admission Exam (Per Admitting) Constitutional WD/WN, vitals as above Eyes normal visual nogueira by confrontation ENMT external ear and nose normal, oropharynx normal Neck normal visual inspection Respiratory normal respiratory effort Cardiovascular Extremities: normal capillary refill Gastrointestinal (Abdomen) Inspection/Auscultation: abdomen normal to inspection Musculoskeletal Spine: + pain with thoraco-lumbar ROM Extremities: extremities normal to inspection and strength 5/5 throughout Skin no rashes, warm and dry Neurologic normal touch/pain/proprioception and moves all extremities Psychiatric A+Ox3, euthymic affect Eye Contact: good eye contact Discharge Data Consultations 06/07/23 18:39 Consult Hospitalist Routine Procedures Performed Operation Date: 06/07/23 12:45 Actual Procedures p L2-L3 Decompression and Fusion with interbody cage, Spinal Cord Monitoring - Ankur Celis, Hospital Course (1) Neurogenic claudication due to lumbar spinal stenosis: Radha is being discharged home on postoperative day 3 status post TLIF L2-3. She had an uneventful hospital course. Lab values have been stable. Pain is controlled. She had a bowel movement. She is making progress daily and physical therapy. Discharge Instructions ACTIVITY RECOMMENDATIONS: SELF CARE INSTRUCTIONS AFTER THORACIC/LUMBAR FUSIONS 1. You may walk to your tolerance. It is good exercise for your legs and back. Expect some back and intermittent leg aches and pains. 2. You may perform "counter-top" level activities (make a sandwich, dee with a project, etc.). 3. No bending or lifting of more than 10 pounds or back twisting of any nature (roll like a log when turning in bed). 4. You may ride in a car for 20-30 minutes at a time. No driving until after your first visit with your doctor. 5. Frequent changes of position and restricting sitting to 30 minutes at a time will help limit the amount of back spasms and stiffness you may experience. 6. You may discontinue the use of ambulatory aids (cane, crutches, etc.) once your strength and confidence allow. 7. You may music instructor the shower and let water strike your incision when you arrive home at least once daily. Do not take a tub bath, sit in a hot tub or go into a swimming pool until after your first recheck in the office. SPECIAL CARE INSTRUCTIONS: VERY IMPORTANT TO READ AND REVIEW A. Your surgical incision has been closed with a cosmetic suture under the skin that will dissolve in about 6 weeks. In 14 days, you can use a pair of clean scissors and cut the suture that is left outside of the skin at the ends of your incision. 1. The small skin tapes can be removed 7 days after surgery if they have not fallen off by that point. 2. You may keep the wound open to air as much as possible to promote healing after post-op day number 5 unless told otherwise by your doctor. 3. If you think the wound looks like it is becoming infected (redness or worsening drainage) and/or you are experiencing fever, chill or worsening back pain and muscle spasms, contact the office so that we may evaluate you as soon as possible. B. Complications are uncommon, but please contact us if you have any signs or symptoms of: 1. wound infection (fever higher than 102.5 degrees F, redness, separation of wound, drainage, or increasing pain from the incision) 2. blood clots in legs (pain, swelling, redness and warmth in legs) 3. urinary tract infection (fever higher than 102.5 degrees F, burning upon urination or increased frequency of urination) 4. nerve problems (inability to walk on your toes or heels, numbness, loss of bowel or bladder control) 5. any other symptoms that concern you C. Please call the office at if you have any concerns or questions about your operation or recovery. D. No smoking! Smoking drastically decreases the chance of a solid fusion. E. Do not take any anti-inflammatory medications (Indocin, Advil, Motrin, Aspirin, Naprosyn, etc.) as these may inhibit the chance of a solid fusion. Tylenol is okay to take for pain. MANAGING PAIN AFTER SPINAL SURGERY 1. Narcotic medication is intended for short-term use and will be provided for surgical pain. Surgical pain usually lasts for a period of 4-6 weeks. Narcotic medication includes Percocet, Vicodin, Darvocet, Tylenol #3 or Lortab. 2. Longer-term pain is more appropriately treated with non-narcotic medication such as Tylenol ES. 3. Muscle spasm is not appropriately treated with narcotics. Muscle relaxers such as Soma, Flexeril or Skelaxin can be used along with Tylenol ES. 4. Remember that we all live with some "aches and pains". This is not unusual or uncommon after an injury or as we get older. a. Back pain is expected and may include muscle spasms for 4 to 6 weeks after surgery. The pain should gradually improve. If the pain worsens for no apparent reason, please contact the office. b. Intermittent leg pain may also be experienced and should not be concerned about unless it worsens for no apparent reason. If so, please contact the office. 5. We will provide appropriate medication within the normal guidelines of their prescribed use. We will also be very cautious and aware of potential abuse and extended duration of patients' medication needs. a. Pain medications are for your comfort and to assist with sleep and rest so that the tissue can heal. They are not provided in order to return to normal activity and should not be used through the day. To do so or worsening pain at night can result from ongoing tissue damage and development of tolerance to the prescribed medicine. 6. Please allow 2-3 days to process refills. Prescriptions will not be mailed but must be picked up at the office. FOLLOW UP VISIT: Keep your scheduled follow-up appointment. Any questions, please call the office at .
== END 2023-06-10 09:39 | disposition home or self-care (01) | DRG 454 ==
LOC: ASU 11:01 → PACUINP 16:06 → 3E 19:57

== ENCOUNTER 2023-10-20 05:55 | Inpatient (IN) ==
--- NOTE | 2023-10-05 09:17 | PAT Medication Instructions ---
Medication Instructions Date of Service October 05, 2023 Home Medications ascorbic acid (vitamin C) 1,000 mg tablet (Vitamin C) 1 g PO QAM cholecalciferol (vitamin D3) 25 mcg (1,000 unit) capsule (Vitamin D3) 25 mcg PO QAM dicyclomine 10 mg capsule 10 mg PO TID PRN ferrous sulfate 325 mg (65 mg iron) tablet (iron) 325 mg PO 3XWK fluticasone propionate 50 mcg/actuation nasal spray,suspension 1 spray intranasal DAILY PRN ibuprofen 400 mg tablet 400 mg PO Q6H PRN lisinopril 20 mg-hydrochlorothiazide 12.5 mg tablet 1 tab PO QAM magnesium 1 tab PO QAM melatonin 5 mg tablet 10 mg PO HS paroxetine HCl 20 mg tablet 20 mg PO QAM potassium chloride 10 mEq capsule,extended release 10 - 20 meq PO UD Medical Marijuana 1 dose sublingual UD PRN celecoxib 200 mg capsule (Celebrex) 200 mg PO QAM esomeprazole magnesium 20 mg capsule,delayed release 20 mg PO QAM pregabalin 150 mg capsule 150 mg PO BID Continue as directed fluticasone propionate 50 mcg/actuation nasal spray,suspension 1 spray intranasal DAILY PRN(if needed) ASK your surgeon for instructions ibuprofen 400 mg tablet 400 mg PO Q6H PRN celecoxib 200 mg capsule (Celebrex) 200 mg PO QAM DO NOT take the morning of surgery ascorbic acid (vitamin C) 1,000 mg tablet (Vitamin C) 1 g PO QAM cholecalciferol (vitamin D3) 25 mcg (1,000 unit) capsule (Vitamin D3) 25 mcg PO QAM dicyclomine 10 mg capsule 10 mg PO TID PRN ferrous sulfate 325 mg (65 mg iron) tablet (iron) 325 mg PO 3XWK lisinopril 20 mg-hydrochlorothiazide 12.5 mg tablet 1 tab PO QAM magnesium 1 tab PO QAM potassium chloride 10 mEq capsule,extended release 10 - 20 meq PO UD Medical Marijuana 1 dose sublingual UD PRN Take morning of surgery With a small sip of water, OTHERWISE NOTHING TO EAT OR DRINK AFTER MIDNIGHT: paroxetine HCl 20 mg tablet 20 mg PO QAM esomeprazole magnesium 20 mg capsule,delayed release 20 mg PO QAM pregabalin 150 mg capsule 150 mg PO BID Take evening before surgery dicyclomine 10 mg capsule 10 mg PO TID PRN(if needed) melatonin 5 mg tablet 10 mg PO HS pregabalin 150 mg capsule 150 mg PO BID Other Notes If you have any questions please call us at [phone] or [phone] or [phone] or [phone]
--- NOTE | 2023-10-09 12:05 | Anesthesiology Consultation ---
Date of Service October 09, 2023 Assessment & Plan (1) Encounter for pre-operative examination: Chart Review Chart Review: Acceptable Risk for Surgery (pending PCP clearance along with response re: anemia and chest pain episode ) and Patient seen in Pre Admission Testing - Awaiting PCP clearance 10/12/23 (LETITIA Echeverria)- please send optimization note/all preop testing regarding chest pain episode and preop anemia for PCP to address at upcoming appt - Awaiting update from patient on name of muscle relaxant that caused allergy - Scop patch ordered for DOS per patient request Per PAT appt on 10/09/23, no recent illness/disease exposures, illness related symptoms, or recent illness/disease positive tests. Will leave to surgeon's discretion if preop Covid testing needed L2-3 decompression/fusion 06/07/2023 = done under [facility] with grade 2 view with [place] #2. ETT #7.0. A-line placed Teaching & Discussion Pre-Anesthesia Teaching/Discussion Notes: Instructed NPO after midnight before surgery,except medications with 15 cc of water. Medication instructions provided according to the PAT guidelines. History Surgery Operation Date: 10/20/23 13:25 Proposed Procedures p Right Sacroiliac Joint Fusion - Ankur Celis, Height/Weight Height: 5 ft 2 in Weight: 96.2 kg Allergies Allergy/AdvReac Type Severity Reaction Status Date / Time muscle relaxant Allergy Intermediate Rash Uncoded 10/09/23 12:42 Medications Home Medications Medication Instructions Recorded Confirmed Last Taken ascorbic acid (vitamin C) 1,000 mg 1 g PO QAM 05/17/23 10/04/23 06/06/23 09:00 tablet (Vitamin C) cholecalciferol (vitamin D3) 25 25 mcg PO QAM 05/17/23 10/04/23 06/06/23 09:00 mcg (1,000 unit) capsule (Vitamin D3) dicyclomine 10 mg capsule 10 mg PO TID PRN Abdominal 05/17/23 10/04/23 06/06/23 09:00 Discomfort ferrous sulfate 325 mg (65 mg 325 mg PO 3XWK 05/17/23 10/04/23 06/06/23 09:00 iron) tablet (iron) fluticasone propionate 50 1 spray intranasal DAILY PRN 05/17/23 10/04/23 Unknown mcg/actuation nasal Congestion spray,suspension ibuprofen 400 mg tablet 400 mg PO Q6H PRN Pain 05/17/23 10/04/23 Unknown lisinopril 20 1 tab PO QAM 05/17/23 10/04/23 06/06/23 09:00 mg-hydrochlorothiazide 12.5 mg tablet magnesium 1 tab PO QAM 05/17/23 10/04/23 06/06/23 09:00 melatonin 5 mg tablet 10 mg PO HS 05/17/23 10/04/23 06/06/23 23:00 paroxetine HCl 20 mg tablet 20 mg PO QAM 05/17/23 10/04/23 06/07/23 08:00 potassium chloride 10 mEq 10 - 20 meq PO UD 05/17/23 10/04/23 06/06/23 20:00 capsule,extended release Medical Marijuana 1 dose sublingual UD PRN Pain 10/04/23 10/04/23 Unknown celecoxib 200 mg capsule (Celebrex) 200 mg PO QAM 10/04/23 10/04/23 Unknown esomeprazole magnesium 20 mg 20 mg PO QAM 10/04/23 10/04/23 Unknown capsule,delayed release pregabalin 150 mg capsule 150 mg PO BID 10/04/23 10/04/23 Unknown Past Medical History Medical History (Updated 10/09/23 @ 15:48 by Nicolle Tanner PA-C) Anemia Taking iron supplementation Anxiety and depression History of blood transfusion Post op back surgery approximately 2016 Hx of hyperglycemia PCP monitoring Hgb A1C 6.0 at [facility] on 10/09/23 Hypertension Seasonal allergies Tremors of nervous system "Head" Follows with [place] neurology - stable Exercise / Class Metabolic Activity II 4-5 Yardwork/Stairs/Walk up hill (one flight of stairs- no chest pain or SOB ) Past Family History Family History Other No family history of adverse response to anesthesia Past Surgical History Surgical History History of lumbar fusion x2---most recent 06/2023 @ [facility] Dr. Celis L2-L3 and 2017 History of open reduction and internal fixation (ORIF) procedure left ankle- hardware intact Hx laparoscopic cholecystectomy Hx of arthroscopy of left knee Hx of section x4 Hx of colonoscopy Hx of elbow surgery left elbow tendon surgery Hx of foot surgery right foot fusion (top of foot) Hx of tooth extraction full dentures Nausea and vomiting after administration of anesthetic agent pt has had to wear scopolamine patch Past Anesthesia History No Hx of Anesthesia Complications (with exception PONV ) and No Family Hx of Anesthesia Complications History of PONV No Hx of Motion Sickness and History of PONV (requesting scop patch DOS (effective)) Social History Smoking Status: Never smoker Do You Dip or Chew Tobacco: No Hx Alcohol Use: Yes alcohol intake frequency: holidays/special occasions only Hx Substance Use: Yes (medical marijuana drops prn) substance use type: marijuana Last Used Substance: Days (ago) Review of Systems - Episode of chest pain (last week) - radiated into bilateral neck and under left breast area - then had severe headache to temples- lasted five minutes and then resolved; not related to physical activity; had similar episode in 2019- did have stress test at that time (was negative) - Hx of snoring- no hx of sleep study Patient denies shortness of breath, dyspnea on exertion, reflux, cough, wheezing, palpitations. No hx of seizures, stroke, NM. No hx of blood clots Physical Exam Vital Signs VITALS BP 117/82 P 63 TEMP 98.0 SP02 94% RESP 16 Constitutional no acute distress ENMT Mouth: no TMJ clicking Thyromental Distance: > or= 3.5 Finger Breadths (3.5) Mallampati Class: II Full dentures on top and bottom Neck neck extension not limited Respiratory normal respiratory effort; no respiratory distress Auscultation: lungs clear to auscultation bilaterally; no wheezes Cardiovascular Rate/Rhythm: regular rate and regular rhythm Heart Sounds: no murmur Vessels: no carotid bruit Musculoskeletal Spine: no pain with cervical ROM Extremities: extremities normal to inspection Psychiatric Orientation: alert Lab Results Anesthesia Preop Results Results Anesthesia Widget: WBC 5.11 K/ul (4.8-10.8) 10/09/23 Hgb 10.1 g/dl (12.0-16.0) L 10/09/23 Hct 31.8 % (37.0-47.0) L 10/09/23 Plt 186 K/uL (130-400) 10/09/23 Na 141 mmol/L (136-145) 10/09/23 K 4.1 mmol/L (3.5-5.1) 10/09/23 Cl 107 mmol/L (98-107) 10/09/23 CO2 28 mmol/L (21-32) 10/09/23 BUN 21 mg/dl (6-23) 10/09/23 Creat 0.78 mg/dl (0.6-1.2) 10/09/23 Glucose Level 103 mg/dl (70-99(Fasting)) H 10/09/23 PT 10.3 Seconds (9.0-12.0) 10/09/23 PTT 25 Seconds (21-31) 10/09/23 INR 0.9 (0.9-1.1) 10/09/23 HA1c 6.0 % (4.5-5.6) H 10/09/23 Urine Color Yellow 10/09/23 Urine Appearance Clear (Clear) 10/09/23 Urine pH 5.5 (4.5-7.5) 10/09/23 Urine Specific [place] 1.018 (1.000-1.030) 10/09/23 Urine Protein Negative (Negative) 10/09/23 Urine Glucose (UA) Negative (Negative) 10/09/23 Urine Ketones Negative (Negative) 10/09/23 Urine Blood Negative (Negative) 10/09/23 Urine Nitrite Negative (Negative) 10/09/23 Urine Bilirubin Negative (Negative) 10/09/23 Urine Urobilinogen Negative (Negative) 10/09/23 Urine Leukocyte Esterase Negative (Negative) 10/09/23 Blood Type B Positive 10/09/23 Antibody Screen NEGATIVE 10/09/23 Testing Laboratory Results Anemia - chronic and stable- surgeon's office informed; optimization note send to PCP to address at upcoming clearance appt Electrocardiogram Date: 10/09/23 Findings: + SB @ (58bpm) Nonspecific T wave abnormality When compared to EKG from May 24, 2023- no significant change was found per cardio Chest X-Ray Date: 10/09/23 Findings: + NAD Stress Test Date: 04/24/19 Type: nuclear Pharmacologic stress EKG is negative for ischemia. Normal hemodynamic response to vasodilator stress. Stress ECG is nondiagnostic due to being pharmacologic type stress. SPECT perfusion imaging demonstrated no evidence of ischemia or infarct. LVEF 65%.
[2023-10-20] MEDS: LR 15ML/HR IV SCH (06:21)
[2023-10-20] MEDS: LR 60ML/HR IV SCH (06:21)
[2023-10-20] MEDS: Scopolamine 1 MG TDSY TD SCH (06:26)
[2023-10-20] MEDS: ACETAMINOPHEN 500 MG TAB PO SCH (06:26)
[2023-10-20] MEDS: CeleBREX 200 MG CAP PO SCH ×2 (06:26→10:35)
[2023-10-20] MEDS: GABAPENTIN 300 MG CAP PO SCH (06:26)
[2023-10-20] MEDS ORDERED: MIDAZOLAM HCL 1 MG/ML 2ML VIAL ONE (07:08)
[2023-10-20] MEDS ORDERED: fentaNYL citrate PF 100 MCG/2 ML VIAL ONE (07:08)
[2023-10-20] MEDS ORDERED: ROCURONIUM BROMIDE 10 MG/ML 5 ML VIAL IV ONE ×2 (07:09→08:24)
[2023-10-20] MEDS ORDERED: ONDANSETRON INJ 2 MG/ML 2 ML VIAL ONE (07:09)
[2023-10-20] MEDS ORDERED: DEXAMETHASONE SOD INJ 4 MG/ML VIAL ONE ×2 (07:09→07:11)
[2023-10-20] MEDS ORDERED: LIDOCAINE 2% 2 ML VIAL/AMP(20MG/ML) INFIL ONE (07:09)
[2023-10-20] MEDS ORDERED: PROPOFOL IV EMULSION 10 MG/ML 20 ML VIAL IV ONE ×2 (07:09→08:08)
[2023-10-20] MEDS ORDERED: ONDANSETRON INJ 2 MG/ML 2 ML VIAL IV PRN ×2 (07:23→09:53)
[2023-10-20] MEDS ORDERED: ePHEDrine sulfate 50 MG/ML AMP IV PRN (07:23)
[2023-10-20] MEDS ORDERED: fentaNYL citrate PF 100 MCG/2 ML VIAL IV PRN (07:23)
[2023-10-20] MEDS ORDERED: ATROPINE SULFATE 0.1 MG/ML 10ML SYR IV PRN (07:23)
--- NOTE | 2023-10-20 07:32 | History & Physical Bridge Note ---
Date of Service October 20, 2023 History & Physical Bridge Note I have examined the patient, reviewed the History & Physical and in the interval since the performance of the History & Physical I have noted the following changes of clinical significance: no changes noted
--- NOTE | 2023-10-20 07:33 | History & Physical Report ---
Date of Service October 20, 2023 Assessment & Plan (1) Sacroiliitis: Plan: Right sacroiliac joint fusion History of Present Illness Chief Complaint: Sacroiliitis Primary Care Provider: Seth Hartley This is a 68-year-old female who presents with chronic persistent sacroiliitis after failing course of nonoperative care is here for surgical invention. Allergies Allergy/AdvReac Type Severity Reaction Status Date / Time orphenadrine Allergy Intermediate rash Verified 10/20/23 06:13 Home Medications Medication Instructions Recorded Confirmed Type ascorbic acid (vitamin C) 1,000 mg 1 g PO QAM 05/17/23 10/20/23 History tablet (Vitamin C) cholecalciferol (vitamin D3) 25 25 mcg PO QAM 05/17/23 10/20/23 History mcg (1,000 unit) capsule (Vitamin D3) dicyclomine 10 mg capsule 10 mg PO TID PRN Abdominal 05/17/23 10/20/23 History Discomfort ferrous sulfate 325 mg (65 mg 325 mg PO 3XWK 05/17/23 10/20/23 History iron) tablet (iron) fluticasone propionate 50 1 spray intranasal DAILY PRN 05/17/23 10/20/23 History mcg/actuation nasal Congestion spray,suspension ibuprofen 400 mg tablet 400 mg PO Q6H PRN Pain 05/17/23 10/20/23 History lisinopril 20 1 tab PO QAM 05/17/23 10/20/23 History mg-hydrochlorothiazide 12.5 mg tablet magnesium 1 tab PO QAM 05/17/23 10/20/23 History melatonin 5 mg tablet 10 mg PO HS 05/17/23 10/20/23 History paroxetine HCl 20 mg tablet 20 mg PO QAM 05/17/23 10/20/23 History potassium chloride 10 mEq 10 - 20 meq PO UD 05/17/23 10/20/23 History capsule,extended release Medical Marijuana 1 dose sublingual UD PRN Pain 10/04/23 10/20/23 History celecoxib 200 mg capsule (Celebrex) 200 mg PO QAM 10/04/23 10/20/23 History esomeprazole magnesium 20 mg 20 mg PO QAM 10/04/23 10/20/23 History capsule,delayed release pregabalin 150 mg capsule 150 mg PO DAILY 10/04/23 10/20/23 History Past Med/Surg History Problem List (Updated 10/20/23 @ 07:32 by Ankur Celis DO) Sacroiliitis Neurogenic claudication due to lumbar spinal stenosis Encounter for pre-operative examination Medical History (Updated 10/20/23 @ 07:32 by Ankur Celis DO) Tremors of nervous system "Head" Follows with [facility] - stable Hx of hyperglycemia PCP monitoring Hgb A1C 6.0 at [facility] on 10/09/23 History of blood transfusion Post op back surgery approximately 2017 Anemia Taking iron supplementation Seasonal allergies Hypertension Anxiety and depression Surgical History Nausea and vomiting after administration of anesthetic agent pt has had to wear scopolamine patch Hx of arthroscopy of left knee Hx of elbow surgery left elbow tendon surgery Hx of section x4 Hx laparoscopic cholecystectomy Hx of colonoscopy Hx of tooth extraction full dentures History of lumbar fusion x2---most recent 06/2023 @ [facility] Dr. Celis L2-L3 and 2017 History of open reduction and internal fixation (ORIF) procedure left ankle- hardware intact Hx of foot surgery right foot fusion (top of foot) Family History Other No family history of adverse response to anesthesia Social History Smoking Status: Never smoker Second Hand Exposure: Yes (hx as child); Do You Dip or Chew Tobacco: No; Tobacco Cessation Education Requested by Patient: No Hx Alcohol Use: Yes Hx Substance Use: Yes (medical marijuana drops prn) Last Used Substance: Days (ago) Preferred Language: Kosovan Communication Ability: Effective Power Transformer Repairer Required: No Beliefs That Will Affect Care: None Current Living Situation: Spouse Other Information That Helps Us Care for You: No Feels Safe at Home: Yes Safety Concerns: Feels Safe At This Time Assistive Devices: Denture - Upper, Denture - Lower, Glasses, Hearing Aid - Bilateral and Walker Physical Exam Physical Exam: Patient is alert and oriented Heart regular in rhythm Lungs clear Results & Data Results & Data Vital Signs (Past 12 Hours) Vital Signs Temp Pulse Resp BP Pulse Ox O2 Del Method 10/20/23 06:10 36.6 C 80 20 118/82 95 Room Air
[2023-10-20] MEDS: ceFAZolin 2000MG 2,000 MG/15 ML SYR IV SCH (07:42)
[2023-10-20] MEDS ORDERED: PHENYLEPHRINE 100MCG/ML 10ML SYR IV ONE (08:08)
[2023-10-20] MEDS ORDERED: ePHEDrine sulfate 50 MG/5 ML SYR ONE (08:08)
[2023-10-20] MEDS ORDERED: diphenhydrAMINE 50 MG/ML VIAL ONE (08:22)
[2023-10-20] MEDS ORDERED: SUGAMMADEX SODIUM 200 MG/2 ML VIAL IV ONE (08:29)
[2023-10-20] MEDS: ceFAZolin 330 MG/ML 1 GM VIAL ONE (08:30)
[2023-10-20] MEDS: BUPIVACAINE/EPINEPHRINE 0.25% 1:200,000 30 ML VIAL ONE (08:30)
[2023-10-20] MEDS: FLOSEAL HEMOSTATIC MATRIX 10ML TOP ONE (08:31)
--- NOTE | 2023-10-20 08:31 | Operative Report ---
Post Operative Report Pre & Post Diagnosis Operation Date: 10/20/23 07:45 Pre-Op Diagnosis: Sacroiliitis Post-Op Diagnosis: Sacroiliitis I identified the patient and participated in the time-out.: Yes Procedure Operation Date: 10/20/23 07:45 Actual Procedures #1 open right SI joint fusion. #2 placement of Nevro one 9 mm implant filled with Morpheus bone graft. Surgeon Ankur Celis, Manager Terminal Ihsan Saenz Estimated Blood Loss 10 Findings Consistent with Post-Op Diagnosis Specimens None Indications This is a 68-year-old female who presents with chronic persistent right sacroiliitis. After failing course of nonoperative care is here for surgical invention. Description of Procedure Patient was met with identified informed consent obtained. Patient was then taken to the operative suite underwent patient placed in a prone position on the John table chest padded bolsters. All bony promises well-padded eyes inspected to ensure no external precipice monitor at this point the right upper buttock was prepped and draped normal sterile fashion. The assistance of fluoroscopy identified the posterior aspect of the right SI joint. Approximate 3 cm incision was placed directly overlying this region. I then placed a joint finder within the joint verifying position in AP lateral and oblique planes. Satisfied with positioning I then placed a second dilator in position followed by a working cannula. The dilators were removed I drilled and curetted out the right SI joint to subcortical bleeding bone. I then placed Morpheus bone graft directly in the joint followed by placement of the Nevro one 9 mm implant itself filled with Morpheus bone graft into the joint. As reported the interdigitation blades transfixing the sacrum to the ileum. The working apparatus was removed the incision copiously irrigated and closed with subcutaneous Vicryl and 4 Monocryl for final skin closure. Steri-Strips sterile dressings placed. Patient awakened taken to PACU in stable condition. Please note Ihsan Saenz was present at the entire procedure and on the patient positioning complex portion of the surgery and final skin closure. I attest to the content of the Intraoperative Record and any orders documented therein. Any exceptions are noted below.
--- NOTE | 2023-10-20 08:53 | Fluoroscopy Report ---
FL sacrum CLINICAL HISTORY: RIGHT SACROILIAC JOINT FUSION COMPARISON STUDY: None FLUOROSCOPY TIME: 54 seconds FLUOROSCOPY IMAGES: 4 EXPOSURE DOSE: 52.74 mGy FINDINGS: Fusion hardware projects over the left SI joint. Lumbar spinal fusion hardware with discect nirmala changes. IMPRESSION: Fluoroscopic assistance as above. ACT 112: Negative or not required by law. Electronically signed by: Kemal Calderon M.D. 10/20/2023 8:51 AM
[2023-10-20] MEDS ORDERED: HYDROmorphone INJ 1 MG/ML SYRINGE IV PRN (09:53)
[2023-10-20] MEDS ORDERED: traMADol HCL 50 MG TABLET PO PRN (09:53)
[2023-10-20] MEDS ORDERED: LORazepam 0.5 MG TAB PO PRN (09:53)
[2023-10-20] MEDS ORDERED: DO NOT ADMINISTER PNEUMOCOCCAL VACCINE PRN (09:53)
[2023-10-20] MEDS ORDERED: SOD PHOSPHATE/SOD BIPHOSPHATE ENEMA 132 ML BTL PR PRN (09:53)
[2023-10-20] MEDS ORDERED: bisacodyL 10 MG SUPP PR PRN (09:53)
[2023-10-20] MEDS ORDERED: MAGNESIUM HYDROXIDE SUSP 30 ML UDC PO PRN (09:53)
[2023-10-20] MEDS ORDERED: NALOXONE HCL 0.4 MG/1 ML VIAL/CARP IV PRN (09:53)
[2023-10-20] MEDS ORDERED: oxyCODONE HCL IR 5 MG TAB (IMMEDIATE RELEASE) PO PRN (09:53)
[2023-10-20] MEDS ORDERED: HYDROmorphone INJ 0.5 MG/0.5 ML SYR IV PRN (09:53)
[2023-10-20] MEDS ORDERED: DO NOT ADMINISTER FLU VACCINE PRN (09:53)
[2023-10-20] MEDS ORDERED: ACETAMINOPHEN 500 MG TAB PO PRN (09:53)
[2023-10-20] MEDS ORDERED: ALUMINUM/MAGNESIUM SUSP 30 ML UDC PO PRN (09:53)
[2023-10-20] MEDS ORDERED: FAMOTIDINE 20 MG TAB PO PRN (09:53)
[2023-10-20] MEDS ORDERED: ACETAMINOPHEN 1,000 MG/100 ML VIAL IV PRN (09:53)
[2023-10-20] MEDS ORDERED: DICYCLOMINE HCL 10 MG CAP PO PRN (09:53)
[2023-10-20] MEDS ORDERED: diphenhydrAMINE Capsule 25 MG CAP PO PRN (09:53)
[2023-10-20] MEDS ORDERED: ONDANSETRON 4 MG OD TAB PO PRN (09:53)
[2023-10-20] MEDS ORDERED: NON-FORMULARY MEDICATION (Magnesium Tablet) PO SCH (09:53)
[2023-10-20] MEDS ORDERED: METOCLOPRAMIDE HCL INJ 5 MG/ML 2 ML VIAL IV PRN (09:53)
[2023-10-20] MEDS ORDERED: LORazepam 0.5 MG in SYRINGE 0.25 ML IV PRN (09:53)
[2023-10-20] MEDS ORDERED: PROMETHAZINE HCL 12.5 MG in SODIUM CHLORIDE 0.9% 50 ML IV PRN (09:53)
[2023-10-20] MEDS ORDERED: hydrOXYzine HCl 25 MG TAB PO PRN (09:53)
--- NOTE | 2023-10-20 10:01 | Anesthesiology Progress Note ---
Date of Service October 20, 2023 Anesthesia Post Procedure Vital Signs Vital Signs: Temp Pulse Pulse Resp BP Pulse Ox O2 Del Method 10/20/23 09:30 97.5 F L 91 H 15 124/61 98 Nasal Cannula 10/20/23 09:20 92 H 15 124/61 97 Nasal Cannula 10/20/23 09:10 97 H 15 127/64 97 Oxymask 10/20/23 09:00 101 H 14 137/64 100 Oxymask 10/20/23 08:51 97.5 F L 103 H 15 148/65 H 98 Oxymask 10/20/23 06:10 97.9 F 80 20 118/82 95 Room Air O2 Flow Rate 10/20/23 09:30 2 10/20/23 09:20 2 10/20/23 09:10 5 10/20/23 09:00 5 10/20/23 08:51 5 10/20/23 06:10 Transfer of Care Handoff Completed per policy Notes Mental Status: alert / awake / arousable and participated in evaluation Patient Amnestic to Procedure: Yes Nausea / Vomiting: adequately controlled Pain: adequately controlled Airway Patency, RR, SpO2: stable & adequate BP & HR: stable & adequate Hydration State: stable & adequate Anesthetic Complications: no major complications apparent and Pt Satisfied with anesthetic care
[2023-10-20] MEDS ORDERED: MEDICAL MARIJUANA INH PRN (10:08)
[2023-10-20] MEDS ORDERED: MELATONIN 3 MG TAB PO PRN (10:17)
[2023-10-20] MEDS: ASCORBIC ACID 500 MG TAB PO SCH (10:35)
[2023-10-20] MEDS: SODIUM CHLORIDE 0.9% 1,000 ML IV SCH (10:35)
[2023-10-20] MEDS: PARoxetine HCL 20 MG TAB PO SCH (10:36)
[2023-10-20] MEDS: LISINOPRIL/HCTZ 20/12.5MG 1 TAB TAB PO SCH (10:36)
[2023-10-20] MEDS: CHOLECALCIFEROL 25 MCG (1000 UNITS) TAB PO SCH (10:36)
[2023-10-20] MEDS: FERROUS SULFATE 325 MG TAB PO SCH (10:36)
[2023-10-20] MEDS: PANTOprazole 40 MG TAB PO SCH (10:37)
[2023-10-20] MEDS: PREGABALIN 150 MG CAP PO SCH (10:38)
[2023-10-20 11:00] VITALS: RESP 16
[2023-10-20 13:08] VITALS: BP 109/65; PULSE 65; TEMP 97.5; O2SAT 93
[2023-10-20] MEDS ORDERED: Scopolamine CHECK PATCH PLACEMENT SCH (16:00)
[2023-10-20] MEDS ORDERED: DOCUSATE SODIUM/SENNA 50/8.6MG TAB PO SCH (21:00)
[2023-10-21] MEDS ORDERED: POLYETHYLENE (MIRALAX) 17 GM PACK PO SCH (06:00)
[2023-10-21] MEDS ORDERED: POTASSIUM CHLORIDE 10 MEQ TABCR PO SCH (09:00)
== END 2023-10-20 14:26 | disposition home or self-care (01) | DRG 460 ==
LOC: ASU 05:55 → 3E 08:34